=== PATIENT | female | born 1965 | race Caucasian/White ===

== ENCOUNTER 2019-04-16 13:52 | Outpatient (CLI) | payer OTHER, SELFPAY ==
--- NOTE | 2019-04-16 14:00 | MM_ITS ---
WS: [id number] BILATERAL DIGITAL SCREENING MAMMOGRAPHY WITH CAD CLINICAL INFORMATION: SCREENING HISTORY: Screening mammogram. No current complaints. COMPARISON: TECHNIQUE: Bilateral CC and MLO views. FINDINGS: Scattered fibroglandular densities bilaterally. No suspicious focal mass, asymmetry, calcifications, or architectural distortion. No evidence of malignancy. MM/[place] [id number] IMPRESSION: BI-RADS: 1-Negative FOLLOW UP: 1 Year Follow-up Recommend return to annual screening mammography.
== END 2019-04-16 13:53 | disposition home or self-care (01) ==
LOC: RADSHAW 13:57
PROVIDERS: PCP Nurse Practitioner Family; Visit Provider Internal Medicine
DX: Z12.31 Encounter for screening mammogram for malignant neoplasm of breast (principal)
CPT/HCPCS: 77067

== ENCOUNTER 2022-08-09 10:42 | Outpatient (CLI) | payer OTHER, SELFPAY ==
--- NOTE | 2022-08-09 10:54 | MM_ITS ---
WS: [id number] BILATERAL SCREENING DIGITAL TOMOSYNTHESIS MAMMOGRAM WITH CAD HISTORY: SCREENING COMPARISON: 04/16/2019, 05/26/2017 Bilateral CC and MLO views with tomosynthesis and synthetic mammography submitted. Computer aided det ection analyzed. Breast composition: There are scattered areas of fibroglandular density. No suspicious masses, microc alcifications or architectural distortion. MM/[place] [id number] IMPRESSION: BI-RADS: 1-Negative FOLLOW UP: 1 Year Follow-up
== END 2022-08-09 10:43 | disposition home or self-care (01) ==
PROVIDERS: PCP Nurse Practitioner Family; Visit Provider Nurse Practitioner Family
DX: Z12.39 Encounter for other screening for malignant neoplasm of breast (principal)
CPT/HCPCS: 77063; 77067

== ENCOUNTER 2022-09-16 14:35 | Oncology outpatient (recurring) (ONCR) | payer OTHER, SELFPAY ==
[2022-09-02 16:17] LABS: Basophils % 0.5 %; Eosinophils % 0.1 %; Hematocrit 38.2 % (37.0-47.0); Hemoglobin 12.3 g/dL (11.5-15.3); Lymphocytes % 36.8 %; Mean Corpuscular HGB Conc 32.2 g/dL (30.0-36.0); Mean Corpuscular Hemoglobin 32.3 pg (28.0-34.0); Mean Corpuscular Volume 100.3 fl (81-99); Mean Platelet Volume 9.6 fL (7.4-10.4); Monocytes # 0.7 10^3/uL (0.2-0.9); Monocytes % 8.5 %; Neutrophils # 4.45 10^3/uL (1.8-7.7); Nucleated Red Blood Cells % 0 %; Platelet Count 517 10^3/cmm (130-400); Red Blood Count 3.81 10^6/uL (4.1-5.3); Red Cell Distribution Width 18.2 % (12.1-15.1); Reticulocyte % 0.8 % (0.5-2.0); White Blood Count 8.3 10^3/uL (4.0-10.0)
[2022-09-02 16:22] LABS: Erythrocyte Sedimentation Rate 4 mm/hr (0-15)
[2022-09-02 16:53] LABS: Lactate Dehydrogenase 162 U/L (135-214)
[2022-09-02 17:08] LABS: Folate Level 6.3 ng/mL (4.8-37.3)
[2022-09-02 17:09] LABS: Vitamin B12 767 pg/mL (232-1245)
[2022-09-08 13:45] LABS: Erythropoietin 11.3 mIU/mL (2.6-18.5)
== END 2022-09-24 23:59 | disposition home or self-care (01) ==
PROVIDERS: PCP Nurse Practitioner Family; Visit Provider Internal Medicine Medical Oncology
DX: Z53.9 Procedure and treatment not carried out, unspecified reason (principal)
CPT/HCPCS: 36415; 82607; 82668; 82746; 83615; 85025; 85045; 85651

== ENCOUNTER 2022-10-21 11:19 | Oncology outpatient (recurring) (ONCR) | payer OTHER, SELFPAY ==
[2022-10-21 11:41] VITALS: BP 159/94; PULSE 87; RESP 18; TEMP 36.8; O2SAT 96
[2022-10-21 11:43] VITALS: BMI 29.0
[2022-10-21 12:00] LABS: Basophils % 0.3 %; Eosinophils % 0.1 %; Hemoglobin 14.2 g/dL (11.5-15.3); Lymphocytes # 2.3 10^3/uL (0.8-4.8); Lymphocytes % 26.9 %; Mean Corpuscular Hemoglobin 30.5 pg (28.0-34.0); Mean Corpuscular Volume 92.5 fl (81-99); Mean Platelet Volume 9.2 fL (7.4-10.4); Monocytes # 0.5 10^3/uL (0.2-0.9); Monocytes % 6.2 %; Neutrophils % 66.3 %; Nucleated Red Blood Cells % 0 %; Platelet Count 461 10^3/cmm (130-400); Red Blood Count 4.65 10^6/uL (4.1-5.3); White Blood Count 8.6 10^3/uL (4.0-10.0)
== END 2022-10-25 23:59 | disposition home or self-care (01) ==
LOC: ONCMED 11:20
PROVIDERS: PCP Nurse Practitioner Family; Visit Provider Internal Medicine Medical Oncology
DX: D75.839 Thrombocytosis, unspecified (principal)
CPT/HCPCS: 36415; 85025

== ENCOUNTER 2023-03-21 13:11 | Emergency (ER) | payer OTHER, SELFPAY ==
[2023-03-21 13:13] VITALS: BP 184/97; PULSE 100; RESP 16; TEMP 36.8; O2SAT 95; BMI 29.5
--- NOTE | 2023-03-21 13:32 | XRR_ITS ---
PROCEDURE INFORMATION: Exam: XR Chest Exam date and time: 03/21/2023 2:05 PM Age: 58 years old Clinical indication: Shortness of breath; Additional info: HTN TECHNIQUE: Imaging protocol: Radiologic exam of the chest. Views: 1 view. COMPARISON: CR XR chest 1V [id number] 01/07/2019 12:15 PM FINDINGS: Lungs: Unremarkable. No consolidation. Pleural spaces: Unremarkable. No pleural effusion. No pneumothorax. Heart/Mediastinum: Unremarkable. No cardiomegaly. Bones/joints: Unremarkable. XR/XR chest 1V portable [id number] IMPRESSION: No acute findings.
--- NOTE | 2023-03-21 13:32 | CTR_ITS ---
PROCEDURE INFORMATION: Exam: CT Head Without Contrast Exam date and time: 03/21/2023 1:48 PM Age: 58 years old Clinical indication: Numbness / parasthesia; Right; Additional info: Numbness right side of mouth and right fingers 1,2 3 TECHNIQUE: Imaging protocol: Computed tomography of the head without contrast. Radiation optimization: All CT scans at this facility use at least one of these dose optimization techniques: automated exposure control; mA and/or kV adjustment per patient size (includes targeted exams where dose is matched to clinical indication); or iterative reconstruction. REPORTING DATA: Count of CT and Cardiac NM exams in prior 12 months: This patient has received 0 known CTs and 0 known cardiac nuclear medicine studies in the 12 months prior to the current study. COMPARISON: No relevant prior studies available. RADIATION DOSE METRICS: Total DLP (mGy-cm): 990.55 FINDINGS: Brain: No midline shift. Ventricles, cisterns, and sulci are normal. No mass, acute infarct, hemorrhage, or extraaxial fluid collection. Cerebral ventricles: No ventriculomegaly. Paranasal sinuses: Visualized sinuses are unremarkable. No fluid levels. Mastoid air cells: Visualized mastoid air cells are well aerated. Bones/joints: Unremarkable. No acute fracture. Soft tissues: Unremarkable. CT/CT head wo con* [id number] IMPRESSION: No acute intracranial abnormality.
--- NOTE | 2023-03-21 13:38 | ECG_ITS ---
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 Measurements Intervals [place] Rate: 97 P: 44 GA: 136 QRS: 15 QRSD: 82 T: 58 QT: 337 QTc: 430 Interpretive Statements SINUS RHYTHM Compared to ECG 01/07/2019 15:06:40 Indeterminate axis no longer present Electronically Signed On 03-21-2023 22:59:32 ENVIRONMENTAL SYSTEMS COORDINATOR by Jenaro Pradhan M.D. [id number]
--- NOTE | 2023-03-21 13:47 | W.ED.NEUROSD ---
HPI - Neuro Symptoms/Deficit General: Chief Complaint: Neuro Symptoms/Deficit Stated Complaint: stroke like symptoms Time Seen by Provider: 03/21/23 13:26 History of Present Illness: Patient presents to the ER today with slight numbness in her right anterior commissure area of her face and right thumb second and third digit on her upper extremity. Patient says these all started about 930. She states these have come and went to multiple times. Patient has no other localizing neurologic deficits at this time. 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 Patient states she has no other complaints. Patient's blood pressure is high but she says she is anxious by going to the doctor. Review of Systems General: Reports: 10 or more systems reviewed and unremarkable except in HPI and below PFSH ED PFSH: Family History Brother Cancer colon Family/Other Heart disease Diabetes Denies family history of Anesthesia complication Bleeding disorder Social History Smoking and tobacco/nicotine status: current every day tobacco/nicotine user cigarettes Second hand smoke exposure: No Alcohol intake: never Substance/Drug Use: never Adopted: No Caregiver/support person: Yes Lives independently: Yes Household members: spouse Housing: House Marital status: Number of children: 3 Highest education level completed: High School Graduate service: No Current occupational status: employed Current occupation: [employer] Current occupational exposures/hazards: No Pets and animals: Yes Leisure activites: exercise, hunting and fishing Do you think of yourself as: Straight/Heterosexual Current gender identity: Female Gabriela/Episcopal: Oriental Orthodox Special gabriela needs: No Physical Exam Const: COMMON NORMALS: no acute distress, average body habitus, patient oriented x3, no limitations, healthy appearing, alert and well nourished HENMT: COMMON NORMALS: normocephalic, atraumatic, hearing grossly normal bilaterally, external ears normal, Normal external nose present, moist oral mucous membranes and oropharynx normal HEAD & SCALP: normocephalic and atraumatic NOSE: Normal external nose present EXTERNAL EAR: Yes external ears normal Eye: COMMON NORMALS: Equal, round and reactive pupils present, EOMs intact bilaterally, conjunctivae normal and no scleral icterus CONJUNCTIVA: Yes conjunctivae normal PUPIL: Yes Equal, round and reactive pupils present Neck/C-Spine: COMMON NORMALS: full ROM, no lymphadenopathy, supple, no meningeal signs, no JVD and Thyroid normal THYROID: Thyroid normal Lymph: LYMPHATIC: no lymphadenopathy noted and no lymphedema noted Chest: COMMONS NORMALS: normal inspection of the chest and normal palpation of entire chest wall Resp: COMMON NORMALS: normal respiratory effort, No retractions, No use of accessory muscles and clear to auscultation bilaterally AUSCULTATION: clear to auscultation bilaterally Cardio: COMMON NORMALS: no JVD, regular rate, regular rhythm, S1 normal heart sound present, S2 normal heart sound present, No gallops present (Cardio), No clicks present (Cardio), No murmurs present (Cardio) and No rub (Cardio) RATE: regular rate RHYTHM: regular rhythm HEART SOUNDS: S1 normal heart sound present and S2 normal heart sound present GI: COMMON NORMALS: Normal to inspection, nondistended, normoactive bowel sounds present, Soft to palpation, non-tender, No hepatosplenomegaly present and no masses PALPATION: Yes Soft to palpation and Yes No hepatosplenomegaly present Extremity: NARRATIVE EXTREMITY EXAM: Symmetric bilateral strength in upper and lower extremities. Neuro: COMMON NORMALS: patient oriented x3 SENSORIUM/ORIENTATION: Yes alert MENINGEAL SIGNS: Yes no meningeal signs Course Vital Signs: Vital signs: Vital Signs Temperature 98.2 F 03/21/23 13:13 Pulse Rate 98 03/21/23 15:40 Respiratory Rate 18 03/21/23 15:40 Blood Pressure 167/111 03/21/23 15:40 Pulse Oximetry 94 03/21/23 15:40 Oxygen Delivery Me thod Room Air 03/21/23 15:00 MDM - Neuro Symptoms/Deficit Medical Decision Making Patient was worked up in normal strokelike fashion with lab work, EKGs, chest x-ray and head CT, all of which was essentially benign. Patient will be diagnosed with paresthesia and instructed to follow-up with her PCP for further evaluation and treatment. Differential Diagnosis Unlikely carpal tunnel syndrome, convulsions, delirium, subarachnoid hemorrhage, peripheral neuropathy, cerebrovascular accident, multiple sclerosis or transient cerebral ischemia Medical Records I reviewed the patient's medical records. Lab Data I reviewed the patient's lab results. 03/21/23 14:00 03/21/23 14:00 Radiology Impressions Chest X-Ray 03/21/23 13:32 IMPRESSION: No acute findings. Head CT 03/21/23 13:32 IMPRESSION: No acute intracranial abnormality. Laboratory Results WBC 9.26 10^3/uL (3.29-11.43) 03/21/23 14:00 RBC 5.16 10^6/uL (3.85-5.65) 03/21/23 14:00 Hgb 14.90 g/dL (11.27-16.99) 03/21/23 14:00 Hct 45.3 % (36-47) 03/21/23 14:00 MCV 87.8 fl (85-98) 03/21/23 14:00 MCH 28.9 pg (27-33) 03/21/23 14:00 MCHC 32.9 g/dL (30-55) 03/21/23 14:00 RDW 13.6 % (12.1-15.1) 03/21/23 14:00 Plt Count 414 10^3/cmm (157-399) H 03/21/23 14:00 MPV 9.5 fL (7.4-10.4) 03/21/23 14:00 Neut % (Auto) 64.3 % 03/21/23 14:00 Lymph % (Auto) 28.3 % 03/21/23 14:00 [place] % (Auto) 6.8 % 03/21/23 14:00 Eos % (Auto) 0.0 % 03/21/23 14:00 Baso % (Auto) 0.4 % 03/21/23 14:00 Neut # (Auto) 5.95 10^3/uL (1.8-7.7) 03/21/23 14:00 Lymph # (Auto) 2.6 10^3/uL (0.8-4.8) 03/21/23 14:00 [place] # (Auto) 0.6 10^3/uL (0.2-0.9) 03/21/23 14:00 Eos # (Auto) 0.0 10^3/uL (0.0-0.8) 03/21/23 14:00 Baso # (Auto) 0.0 10^3/uL (0.0-0.1) 03/21/23 14:00 Nucleated RBC % (auto) 0 % 03/21/23 14:00 Nucleated RBCs # 0.0 /100WBC 03/21/23 14:00 Sodium 141 mmol/L (136-145) 03/21/23 14:00 Potassium 4.4 mmol/L (3.5-5.1) 03/21/23 14:00 Chloride 105 mmol/L (98-107) 03/21/23 14:00 Carbon Dioxide 22 mmol/L (22-29) 03/21/23 14:00 Anion Gap 18.4 (5-19) 03/21/23 14:00 BUN 15 mg/dL (6-20) 03/21/23 14:00 Creatinine 0.7 mg/dL (0.5-0.9) 03/21/23 14:00 GFR Calculation 85.6 mL/min (90-130) L 03/21/23 14:00 Glucose 106 mg/dL (65-115) 03/21/23 14:00 Calculated Osmolality 293 mOsm/kg (285-295) 03/21/23 14:00 Calcium 9.9 mg/dL (8.5-10.5) 03/21/23 14:00 Magnesium 1.9 mg/dL (1.7-2.3) 03/21/23 14:00 Total Bilirubin 0.2 mg/dL (0.15-1.2) 03/21/23 14:00 AST 14 U/L (0-32) 03/21/23 14:00 ALT 12 U/L (0-33) 03/21/23 14:00 Alkaline Phosphatase 129 U/L (35-105) H 03/21/23 14:00 Troponin T Baseline 8 ng/L (0-10) 03/21/23 14:00 Troponin T 120 Minute 7.83 ng/L (0-10) 03/21/23 15:49 Delta Troponin T -0.17 ABS# (0-10) L 03/21/23 15:49 C-Reactive Protein 3.0 mg/L (0.0-4.9) 03/21/23 14:00 Total Protein 7.1 g/dL (6.6-8.7) 03/21/23 14:00 Albumin 4.2 g/dL (3.5-5.2) 03/21/23 14:00 Globulin 2.9 g/dL (1.3-4.6) 03/21/23 14:00 TSH 1.02 uIU/mL (0.27-4.20) 03/21/23 14:00 All radiology interpretation(s) finalized by discharge EKG Data EKG 1: I personally reviewed and interpreted this EKG as follows: EKG interpretation date: 03/21/23 EKG interpretation time: 13:38 Prior EKG tracings: not available for review Interpretation: EKG showed ventricular rate 97 beats a minute, OR interval 136, QRS duration 82, QTc 392, sinus rhythm EKG 2: I personally reviewed and interpreted this EKG as follows: EKG interpretation date: 03/21/23 EKG interpretation time: 15:51 Prior EKG tracings: available for review Interpretation: EKG shows ventricular rate 80 bpm, OR interval 136, QRS duration 86, QTc of 408, sinus rhythm Discharge Plan Discharge Patient Disposition: Home Clinical Impression: Facial paresthesia, Hand paresthesia Condition: Stable Prescriptions: No Action mecobalamin (vitamin B12) 10,000 mcg recon soln IM aspirin 81 mg capsule 81 mg PO DAILY Discharge Orders: Discharge ED (Routine); Ordered 03/21/23 Ordered By: Wyatt Nolen Referrals: Rosaura Watson, SPORTS MEDICINE COORDINATOR [Primary Care Provider] - 1 week Patient Instructions: Paresthesia (ED) Activity Restrictions/Additional Instructions: Your lab work and imaging were negative for any acute causes of your numbness and tingling. Is felt that these are paresthesias and not a CVA. Please follow-up with your family practice physician within the next 7 to 10 days for further evaluation and treatment. If these change or get worse please feel free to return to the ER. Coding Level of Care Code ED Director Surface Transportation for Jairo Patel
[2023-03-21 14:15] VITALS: BP 181/132; PULSE 102; RESP 20; O2SAT 93
[2023-03-21 14:17] VITALS: BP 181/132
[2023-03-21] MEDS: cloNIDine 0.1 mg Tablet PO (14:17)
[2023-03-21 14:30] LABS: Basophils % 0.4 %; Hematocrit 45.3 % (36-47); Lymphocytes # 2.6 10^3/uL (0.8-4.8); Lymphocytes % 28.3 %; Mean Corpuscular HGB Conc 32.9 g/dL (30-55); Mean Corpuscular Hemoglobin 28.9 pg (27-33); Mean Corpuscular Volume 87.8 fl (85-98); Mean Platelet Volume 9.5 fL (7.4-10.4); Monocytes # 0.6 10^3/uL (0.2-0.9); Monocytes % 6.8 %; Neutrophils # 5.95 10^3/uL (1.8-7.7); Neutrophils % 64.3 %; Nucleated Red Blood Cells % 0 %; Platelet Count 414 10^3/cmm (157-399); Red Blood Count 5.16 10^6/uL (3.85-5.65); Red Cell Distribution Width 13.6 % (12.1-15.1); White Blood Count 9.26 10^3/uL (3.29-11.43)
[2023-03-21 14:55] LABS: Troponin(5th) Baseline 8 ng/L (0-10)
--- NOTE | 2023-03-21 14:58 | PC.NURSE ---
RN ASSUMED CARE AT THIS TIME
[2023-03-21 15:00] VITALS: BP 166/104; PULSE 85; RESP 16; O2SAT 94; O2SAT 98
[2023-03-21 15:07] LABS: Alanine Aminotransferase 12 U/L (0-33); Albumin Level 4.2 g/dL (3.5-5.2); Alkaline Phosphatase 129 U/L (35-105); Anion Gap 18.4 (5-19); Aspartate Amino Transferase 14 U/L (0-32); Blood Urea Nitrogen 15 mg/dL (6-20); Calcium 9.9 mg/dL (8.5-10.5); Carbon Dioxide 22 mmol/L (22-29); Chloride 105 mmol/L (98-107); Globulin 2.9 g/dL (1.3-4.6); Glomerular Filtration Rate 85.6 mL/min (90-130); Glucose 106 mg/dL (65-115); Magnesium 1.9 mg/dL (1.7-2.3); Osmolality Calculated 293 mOsm/kg (285-295); Potassium 4.4 mmol/L (3.5-5.1); Sodium 141 mmol/L (136-145); Thyroid Stimulating Hormone 1.02 uIU/mL (0.27-4.20); Total Bilirubin 0.2 mg/dL (0.15-1.2); Total Protein 7.1 g/dL (6.6-8.7)
[2023-03-21 15:40] VITALS: BP 167/111; PULSE 98; RESP 18; O2SAT 94
--- NOTE | 2023-03-21 15:51 | ECG_ITS ---
[facility] Test Date: 2023-03-21 Pat Name: Ynes Palacio Department: Room: Gender: Female Director Vaccine: : 1965 Requested By: Wyatt Nolen Order Number: [id number] Shant MD: Jenaro Pradhan M.D. Measurements Intervals [place] Rate: 80 P: 37 [place]: 136 QRS: 16 QRSD: 86 T: 57 QT: 371 QTc: 430 Interpretive Statements SINUS RHYTHM Compared to ECG 03/21/2023 13:38:01 No significant changes Electronically Signed On 03-21-2023 23:01:17 MATCH MARKER by Jenaro Pradhan M.D. [id number]
[2023-03-21 16:18] LABS: Troponin 5 2HR 7.83 ng/L (0-10)
[2023-03-21 16:22] LABS: Troponin 5 2HR Delta -0.17 ABS# (0-10)
[2023-03-21 16:45] VITALS: BP 154/106; PULSE 98; RESP 16; O2SAT 98
== END 2023-03-21 16:49 | disposition home or self-care (01) ==
PROVIDERS: Emergency Provider Emergency Medicine; PCP Nurse Practitioner Family
DX: R20.2 Paresthesia of skin (principal); Z79.82 Long term (current) use of aspirin; F17.210 Nicotine dependence, cigarettes, uncomplicated
CPT/HCPCS: 36415; 70450; 71045; 80053; 83735; 84443; 84484; 85025; 86140; 93005; 99285

== ENCOUNTER 2023-05-19 11:34 | Outpatient (CLI) | payer OTHER, SELFPAY ==
--- NOTE | 2023-05-19 11:43 | MR_ITS ---
WS: [id number] MRI CERVICAL SPINE with and without contrast HISTORY: ARM PERIPHERAL NEUROPATHY/COMPRESSION FACIAL NEUROPATHY COMPARISON: None available. Technique: Multiplanar, multisequence noncontrast imaging of the cervical spine. Postcontrast sequenc es post MultiHance 20 mL. Normal cervical alignment with no compression fracture or significant disc space narrowing. Signal within the cervical cord is normal. Visualized posterior fossa is unremarkable. Craniocervical junction, C1 and C2 relationship, odontoid process and soft tissues are normal. C2-C3: Normal. C3-C4: Normal. C4-C5: Normal. C5-C6: Small central disc protrusion and mild facet arthritis. Mild effacement of ventral CSF. Very s light contact on the ventral cord. C6-C7: Small to moderate central disc protrusion does contact the ventral thecal sac with mild flatte nabeel. Moderate sized RIGHT foraminal disc osteophyte. Smaller disc osteophyte at the LEFT foramen. Mo derate to severe RIGHT and mild LEFT foraminal stenosis and mild central stenosis. Additional facet j oint arthritis posteriorly. C7-T1: Normal. Postcontrast images are negative for enhancing mass. There is no discitis or osteomyelitis. No enhanc ing cord lesions. IMPRESSION: 1. C6-7: Small to moderate central disc protrusion with disc osteophyte extending into the foramina. Moderate to severe RIGHT and mild LEFT foraminal stenosis with mild central stenosis. 2. C5-6: Small central disc protrusion with mild effacement of the ventral CSF. 3. No discitis or osteomyelitis. 4. No demyelinating lesions in the cervical cord or abnormal enhancement.
[2023-05-19] MEDS: gadobenate dimeglumine 20 mL vial IV (12:57)
== END 2023-05-19 11:35 | disposition home or self-care (01) ==
LOC: RAD 11:35
PROVIDERS: PCP Nurse Practitioner Family; Visit Provider Nurse Practitioner Family
DX: M50.223 Other cervical disc displacement at C6-C7 level (principal); M25.78 Osteophyte, vertebrae; M48.02 Spinal stenosis, cervical region
CPT/HCPCS: 72156; A9577

== ENCOUNTER → 2023-06-14 15:16 | Outpatient (BNVA) | payer OTHER, SELFPAY | PROVIDERS: PCP Nurse Practitioner Family; Referring Provider Nurse Practitioner Family; Visit Provider Orthopaedic Surgery | DX: M54.2 Cervicalgia (principal) | CPT/HCPCS: 72050 ==

== ENCOUNTER 2023-08-16 15:33 | Outpatient (CLI) | payer OTHER, SELFPAY ==
--- NOTE | 2023-08-16 16:00 | MR_ITS ---
WS: [id number] MRI HEAD WITHOUT CONTRAST TECHNIQUE: Sagittal T1, T2 axial, T2 axial FLAIR, axial and coronal T1 images, axial susceptibility w eighted imaging, axial diffusion weighted images, and coronal T2 images were obtained. CLINICAL INFORMATION: G50.0 - Trigeminal neuralgia COMPARISON: CT 03/21/2023 FINDINGS: No evidence of restricted diffusion to suggest acute ischemia. Minimal small vessel changes with mild parenchymal volume loss. Parenchymal volume loss slightly more prominent in the parietal lobes. Norm al posterior fossa. Normal vascular flow voids at the skull base. No extra-axial fluid collections. T iny chronic lacunar infarct LEFT thalamus. Paranasal sinuses and mastoid air cells are well aerated. Normal posterior nasopharynx. No hemosiderin on the susceptibly weighted images. Normal optic chiasm and pituitary infundibulum. Temporal lobes and hippocampal formations are normal in appearance. No other acute findings. Limited evaluation of the trigeminal nerve root entry zones which appear grossly normal. This can be further evaluated with trigeminal neuralgia protocol if clinically indicated. MR/MR head wo con* [id number] IMPRESSION: 1. No evidence of restricted diffusion to suggest acute ischemia. 2. Normal small vessel changes. Mild parenchymal volume loss worse in the bila teral parietal lobes. 3. Paranasal sinuses and mastoid air cells are well aerated. 4. Limited evaluation of the trigeminal nerve root entry zones which appear gr ossly normal. This could be further evaluated with MRI head without and with ga dolinium enhancement with trigeminal neuralgia protocol for better anatomic det ail if clinically indicated. 5. Normal optic chiasm and pituitary infundibulum. Temporal lobes and hippocam pal formations are normal in appearance. 6. No hemosiderin on susceptibility-weighted images. 7. Tiny chronic lacunar infarct LEFT thalamus. 8. No other suspicious findings.
== END 2023-08-16 15:34 | disposition home or self-care (01) ==
LOC: RAD 15:33
PROVIDERS: PCP Nurse Practitioner Family; Visit Provider Anesthesiology Pain Medicine
DX: G50.0 Trigeminal neuralgia (principal)
CPT/HCPCS: 70551

== ENCOUNTER → 2024-01-17 12:49 | Outpatient (BNVA) | payer OTHER, SELFPAY | PROVIDERS: PCP Nurse Practitioner Family; Visit Provider Orthopaedic Surgery | DX: M47.22 Other spondylosis with radiculopathy, cervical region (principal); E53.8 Deficiency of other specified B group vitamins; M19.90 Unspecified osteoarthritis, unspecified site | CPT/HCPCS: 36415; 72050; 82607; 82652; 82746; 83090; 83735; 83921; 84439; 84443 ==

== ENCOUNTER 2024-02-02 15:03 | Outpatient (CLI) | payer OTHER, SELFPAY ==
--- NOTE | 2024-02-02 15:15 | USCV_ITS ---
Ynes Palacio Age: 58 Gender: F : 1965 Exam Date: 02/02/2024 15:13 Ordering Phys: Samy Pearson MD Technologist: [employer] [place] [facility] [place]: cerebral infarction Risk Factors: Previous Vascular Surgery: Right Brachial BP: / Left Brachial BP: / Right Left Velocity (cm/s) Spectral Plaque Velocity (cm/s) Spectral Plaque Syst/Diast Broadening Syst/Diast Broadening 74.10/ 17.30 Prox CCA 72.70 / 18.50 91.90/ 21.90 Mid CCA 78.70 / 19.80 63.10/ 20.60 Distal CCA 80.00 / 21.00 48.90/ 14.50 Prox ICA 48.10 / 13.30 30.20/ 10.20 Mid ICA 44.50 / 14.60 34.70/ 12.60 Distal ICA 64.00 / 20.60 71.10 ECA 71.30 0.80 ICA/CCA 0.80 Antegrade Vertebral Antegrade 40.20/ 14.80 cm/s 54.80/ 14.30 cm/s Tri Subclavian Tri 245.1 133.9 0 0 CONCLUSIONS Right ICA stenosis <50%. Mild atheromatous plaque right carotid bulb/ICA. Right ICA stenosis <50%. Mild atheromatous plaque left carotid bulb/ICA. Normal antegrade Doppler flow noted in the right vertebral artery. Normal antegrade Doppler flow noted in the left vertebral artery. Newton Villarreal MD (Electronically Signed) Final Date: 02 February 2024 15:43 S
== END 2024-02-02 15:04 | disposition home or self-care (01) ==
LOC: RAD 15:04
PROVIDERS: PCP Nurse Practitioner Family; Visit Provider Psychiatry & Neurology Neurology
DX: I63.9 Cerebral infarction, unspecified (principal)
CPT/HCPCS: 93880

== ENCOUNTER 2024-02-22 08:00 | Oncology outpatient (recurring) (ONCR) | payer OTHER, SELFPAY ==
[2024-01-31] MEDS: cyanocobalamin 1,000 mcg/mL SDV 1000 MCG IM (15:23)
[2024-02-01] MEDS: cyanocobalamin 1,000 mcg/mL SDV 1000 MCG IM (08:08)
[2024-02-02] MEDS: cyanocobalamin 1,000 mcg/mL SDV 1000 MCG IM (10:25)
[2024-02-08] MEDS: cyanocobalamin 1,000 mcg/mL SDV 1000 MCG IM (08:13)
[2024-02-08 08:15] VITALS: BP 171/98; PULSE 85; RESP 16; TEMP 36.4; O2SAT 98
[2024-02-15] MEDS: cyanocobalamin 1,000 mcg/mL SDV 1000 MCG IM (08:16)
[2024-02-15 08:18] VITALS: BP 165/97; PULSE 91; RESP 16; TEMP 36.4; O2SAT 96
[2024-02-22] MEDS: cyanocobalamin 1,000 mcg/mL SDV 1000 MCG IM (08:18)
[2024-02-22 08:20] VITALS: BP 171/97; PULSE 95; RESP 16; TEMP 36.8; O2SAT 98
== END 2024-02-25 23:59 | disposition home or self-care (01) ==
PROVIDERS: PCP Nurse Practitioner Family; Visit Provider Internal Medicine Medical Oncology
DX: D51.9 Vitamin B12 deficiency anemia, unspecified (principal); Z53.9 Procedure and treatment not carried out, unspecified reason; Z79.899 Other long term (current) drug therapy
CPT/HCPCS: 96372; 96401; J3420

== ENCOUNTER 2024-02-29 07:49 | Oncology outpatient (recurring) (ONCR) | payer OTHER, SELFPAY ==
[2024-02-29] MEDS: cyanocobalamin 1,000 mcg/mL SDV 1000 MCG IM (08:09)
[2024-02-29 08:11] VITALS: BP 145/95; PULSE 86; RESP 16; TEMP 36.6; O2SAT 96
== END 2024-03-27 23:59 | disposition home or self-care (01) ==
PROVIDERS: PCP Nurse Practitioner Family; Visit Provider Internal Medicine Medical Oncology
DX: D51.9 Vitamin B12 deficiency anemia, unspecified; Z79.899 Other long term (current) drug therapy
CPT/HCPCS: 96372; J3420

== ENCOUNTER 2024-03-29 08:25 | Outpatient (CLI) | payer OTHER, SELFPAY ==
--- NOTE | 2024-03-29 09:45 | MR_ITS ---
WS: [id number] MRA ANGIOGRAPHY [place] HISTORY: G50.0 - Trigeminal neuralgia COMPARISON: None TECHNIQUE: 3-D MR angiography is performed of the [facility] [place] [facility] [place]. All images are reviewed including source images. Distal vertebral and basilar arteries are intact with no significant stenosis or plaque. Posterior ce rebral arteries are normal course and caliber. Posterior communicating arteries are both patent. Intracranial portion of the internal carotid arteries are normal course and caliber. No significant a therosclerosis, stenosis or aneurysm identified. Middle and anterior cerebral arteries are both paten t with no significant disease. Anterior communicating artery is also normal. LEFT A1 segment is sligh tly hypoplastic but widely patent. MR/MR angio head wo con [id number] IMPRESSION: 1. Unremarkable MR angiogram [facility] [place] [place]. 2. Very slightly hypoplastic LEFT A1 segment. 3. No cerebral aneurysms or occlusions.
== END 2024-03-29 08:26 | disposition home or self-care (01) ==
LOC: RAD 08:27
PROVIDERS: PCP Nurse Practitioner Family; Visit Provider Psychiatry & Neurology Neurology
DX: G50.0 Trigeminal neuralgia (principal)
CPT/HCPCS: 36415; 70544; 72050; 82607; 82652; 82746; 83090; 83735; 83921; 84439; 84443

== ENCOUNTER 2024-04-04 13:10 | Oncology outpatient (recurring) (ONCR) | payer OTHER, SELFPAY ==
[2024-04-04 13:29] LABS: Basophils % 0.4 %; Eosinophils % 0.2 %; Hematocrit 43.4 % (36-47); Lymphocytes # 2.7 10^3/uL (0.8-4.8); Lymphocytes % 32.4 %; Mean Corpuscular HGB Conc 32.7 g/dL (30-55); Mean Corpuscular Hemoglobin 29.5 pg (27-33); Mean Platelet Volume 8.9 fL (7.4-10.4); Monocytes # 0.6 10^3/uL (0.2-0.9); Monocytes % 7.2 %; Neutrophils # 4.96 10^3/uL (1.8-7.7); Neutrophils % 59.6 %; Nucleated Red Blood Cells % 0 %; Platelet Count 430 10^3/cmm (157-399); Red Blood Count 4.82 10^6/uL (3.85-5.65); Red Cell Distribution Width 12.5 % (12.1-15.1); White Blood Count 8.33 10^3/uL (3.29-11.43)
[2024-04-04 13:47] LABS: Alanine Aminotransferase 12 U/L (0-33); Alkaline Phosphatase 119 U/L (35-105); Anion Gap 16.2 (5-19); Aspartate Amino Transferase 15 U/L (0-32); Blood Urea Nitrogen 14 mg/dL (8-23); Calcium 9.6 mg/dL (8.5-10.5); Carbon Dioxide 25 mmol/L (22-29); Chloride 102 mmol/L (98-107); Creatinine Clr Calc Pharmacy 68.7123; Ferritin 36 ng/mL (15-150); Globulin 3.2 g/dL (1.3-4.6); Glomerular Filtration Rate 63.9 mL/min (90-130); Glucose 111 mg/dL (65-115); Iron 95 ug/dL (37-145); Osmolality Calculated 289 mOsm/kg (285-295); Percent Saturation 25.9 % (20-50); Potassium 4.2 mmol/L (3.5-5.1); Sodium 139 mmol/L (136-145); Total Bilirubin 0.2 mg/dL (0.15-1.2); Total Iron Binding Capacity 366 mcg/dl; Total Protein 7.2 g/dL (6.6-8.7); Unsaturated Iron Binding 271 ug/dL (112-347)
[2024-04-04] MEDS: cyanocobalamin 1,000 mcg/mL SDV 1000 MCG IM (15:03)
== END 2024-04-27 23:59 | disposition home or self-care (01) ==
PROVIDERS: PCP Nurse Practitioner Family; Visit Provider Internal Medicine Medical Oncology
DX: D51.9 Vitamin B12 deficiency anemia, unspecified (principal); Z79.899 Other long term (current) drug therapy
CPT/HCPCS: 36415; 80053; 82728; 83540; 83550; 85025; 96401; J3420

== ENCOUNTER 2024-08-21 13:35 | Oncology outpatient (recurring) (ONCR) | payer OTHER, SELFPAY ==
[2024-08-21 14:10] LABS: Basophils % 0.4 %; Eosinophils % 0.3 %; Hematocrit 42.8 % (36-47); Lymphocytes # 2.5 10^3/uL (0.8-4.8); Lymphocytes % 36.5 %; Mean Corpuscular HGB Conc 32.5 g/dL (30-55); Mean Corpuscular Hemoglobin 28.6 pg (27-33); Mean Corpuscular Volume 88.1 fl (85-98); Mean Platelet Volume 9.3 fL (7.4-10.4); Monocytes # 0.5 10^3/uL (0.2-0.9); Monocytes % 6.9 %; Neutrophils # 3.78 10^3/uL (1.8-7.7); Neutrophils % 55.8 %; Nucleated Red Blood Cells % 0 %; Platelet Count 402 10^3/cmm (157-399); Red Blood Count 4.86 10^6/uL (3.85-5.65); Red Cell Distribution Width 13.6 % (12.1-15.1); White Blood Count 6.79 10^3/uL (3.29-11.43)
[2024-08-21 14:32] LABS: Alanine Aminotransferase 12 U/L (0-33); Alkaline Phosphatase 117 U/L (35-105); Anion Gap 17.9 (5-19); Aspartate Amino Transferase 17 U/L (0-32); Blood Urea Nitrogen 14 mg/dL (8-23); Calcium 9.2 mg/dL (8.5-10.5); Carbon Dioxide 21 mmol/L (22-29); Chloride 104 mmol/L (98-107); Creatinine Clr Calc Pharmacy 88.3444; Ferritin 20 ng/mL (15-150); Globulin 3.3 g/dL (1.3-4.6); Glomerular Filtration Rate 85.4 mL/min (90-130); Glucose 97 mg/dL (65-115); Homocysteine 11.63 umol/l (0-15); Iron 107 ug/dL (37-145); Lactate Dehydrogenase 148 U/L (135-214); Osmolality Calculated 288 mOsm/kg (285-295); Percent Saturation 27.8 % (20-50); Potassium 3.9 mmol/L (3.5-5.1); Sodium 139 mmol/L (136-145); Total Bilirubin 0.2 mg/dL (0.15-1.2); Total Iron Binding Capacity 384 mcg/dl; Total Protein 7.3 g/dL (6.6-8.7); Unsaturated Iron Binding 277 ug/dL (112-347)
[2024-08-21 14:45] LABS: Vitamin B12 280 pg/mL (232-1245)
[2024-08-21 14:48] LABS: Folate Level 18.7 ng/mL (4.8-37.3)
[2024-08-25 05:50] LABS: Methylmalonic Acid 246 nmol/L (69-390)
[2024-08-25 10:44] LABS: Parietal Cell Antibody POSITIVE (NEGATIVE)
[2024-08-25 15:15] LABS: Intrinsic Factor Blocking AB POSITIVE
== END 2024-08-25 23:59 | disposition home or self-care (01) ==
PROVIDERS: Internal Medicine; PCP Nurse Practitioner Family; Visit Provider Internal Medicine Medical Oncology
DX: D51.9 Vitamin B12 deficiency anemia, unspecified (principal); D75.839 Thrombocytosis, unspecified
CPT/HCPCS: 36415; 80053; 82607; 82728; 82746; 83010; 83090; 83540; 83550; 83615; 83921; 85025; 85045; 86255; 86340